=== PATIENT | female | born 1990 | race African-American/Black ===

== ENCOUNTER 2020-10-03 17:57 | Emergency (ER) | payer OTHER ==
[~2020-10-03] VITALS: Ht 177.8 cm; Wt 60.3 kg
[2020-10-03 18:09] VITALS: Ht 177.8 cm; Wt 60.3 kg
[2020-10-03 19:23] VITALS: BP 136/80
== END 2020-10-03 19:23 | disposition home or self-care (01) ==
LOC: EDSEX 17:57 → ED 17:57
DX: S01.511A Laceration without foreign body of lip, initial encounter (principal); Y04.8XXA Assault by other bodily force, initial encounter; Y93.89 Activity, other specified; Y92.89 Other specified places as the place of occurrence of the external cause; Y99.8 Other external cause status
CPT/HCPCS: J2001

== ENCOUNTER 2020-10-05 14:47 | Emergency (ER) | payer OTHER ==
[~2020-10-05] VITALS: Ht 170.2 cm; Wt 62.1 kg
[2020-10-05 15:03] VITALS: BP 131/71; Ht 170.2 cm; Wt 62.1 kg
== END 2020-10-05 15:56 | disposition home or self-care (01) ==
LOC: ED 14:47 → EDSEX 14:47 → ED 15:56
DX: S01.511D Laceration without foreign body of lip, subsequent encounter (principal); X58.XXXD Exposure to other specified factors, subsequent encounter

== ENCOUNTER 2020-10-08 12:59 | Emergency (ER) | payer OTHER ==
[~2020-10-08] VITALS: Ht 170.2 cm; Wt 62.6 kg
[2020-10-08 13:36] VITALS: Ht 170.2 cm; Wt 62.6 kg
[2020-10-08 14:12] VITALS: BP 103/73
== END 2020-10-08 14:12 | disposition home or self-care (01) ==
LOC: ED 12:59
DX: S01.511D Laceration without foreign body of lip, subsequent encounter (principal); X58.XXXD Exposure to other specified factors, subsequent encounter